=== PATIENT | female | born 1990 | race Asian ===

== ENCOUNTER 2022-04-05 13:14 | Inpatient (IN) ==
[2022-04-05] MEDS ORDERED: ACETAMINOPHEN 325 MG TAB PO PRN (13:18)
[2022-04-05] MEDS ORDERED: OXYTOCIN 30 UNITS/500 ML BAG IV PRN ×3 (13:47→20:49)
[2022-04-05] MEDS ORDERED: LIDOCAINE 1% LOCAL 20 ML VIAL INFIL PRN (13:47)
[2022-04-05 14:16] LABS: Hematocrit (blood only) 32.6 % (34.1-44.9); Hemoglobin 11.1 g/dl (12.0-16.0); Mean Corpuscular Volume 91.1 fL (80.0-100.0); Mean Platelet Volume 9.6 fL (9.4-12.3); Platelet Count 203 K/uL (130-400); RDW Coefficient of Variation 16.1 % (11.5-14.5); RDW Standard Deviation 54.6 fL (36.4-46.3); Red Blood Count 3.58 M/uL (3.93-5.22); White Blood Count 8.94 K/ul (4.8-10.8)
[2022-04-05] MEDS: LACTATED RINGER'S 1,000 ML IV PRN ×2 (14:59→16:13)
--- NOTE | 2022-04-05 15:17 | History & Physical Report ---
Date of Service April 05, 2022 Assessment & Plan (1) Encounter for supervision of normal in multigravida: Plan: patient is a 31-year-old currently at 40 weeks 3 days gestational age presents for leakage of fluid and early labor. 1. Fetus reactive NST/ category 1 tracing. 2. Labor: Early 3. GBS negative 4. Vitals wnl (2) Normal labor: (3) SROM (spontaneous rupture of membranes): Admission and Anticipated Discharge Date Admission Date: April 05, 2022 History of Present Illness Primary Care Provider: Grupo Larry DO [place] is a 31-year-old at 40 weeks 3 days gestational age. Patient presents with complaint of leakage of fluid and contractions. Denies any vaginal bleeding and reports good movement. Patient's has been uncomplicated today. Allergies Allergy/AdvReac Type Severity Reaction Status Date / Time No Known Allergies Allergy Verified 04/04/22 10:51 Home Medications Medication Instructions Recorded Confirmed Type vit 168-iron 27 mg-folic cap PO 09/05/21 04/04/22 History acid 800 mcg-omega3 235 mg capsule (One-A-Day -1) Patient History Medical History Varicella vaccination Surgical History S/P dilatation and curettage Family History Mother Hypertension Grandfather Myocardial infarction Father Glaucoma Denies family history of Ovarian cancer Prostate cancer Diabetes Breast cancer Lung cancer Colorectal cancer Social History Smoking Status: Never smoker Second Hand Exposure: No; Do You Dip or Chew Tobacco: No; Tobacco Cessation Education Requested by Patient: No Hx Alcohol Use: No Hx Substance Use: No Preferred Language: [place] Communication Ability: Effective Stylist Assistant Required: No Beliefs That Will Affect Care: None marital status: marital status details: Alexander Quinones (33) [phone] Current Living Situation: Spouse Current Living Situation Comment: - Di, Son- Ramiro 3y/0, Mother- Cherelle current occupational status: employed current occupation: [employer] Other Information That Helps Us Care for You: No Feels Safe at Home: Yes Safety Concerns: Feels Safe At This Time Childhood Exposure to Second-Hand Smoke: No Dental Care, Regularly: No Physical Activity Frequency: 1-2 Times per Week Seatbelt Use: always Sunscreen Use: Yes Assistive Devices: Glasses Physical Exam Genitourinary: Manual OB Exam: + cervical dilation 5 cm, + cervical effacement 80%, + station -1 and + amniotic fluid ( small ferns noted, pooling equivocal. Nitrazine positive) OB Exam Monitor Tracing: + external FHT monitor used, + category I and + normal FHT variability; no early decelerations present, no late decelerations present and no variable decelerations Results & Data ([facility]) Vital Signs (Past 12 Hours) Vital Signs Temp Pulse Resp BP 04/05/22 13:34 37.4 C 18 04/05/22 13:25 18 04/05/22 13:25 37.4 C 18 04/05/22 13:26 83 106/61 Coding Level of Care Code None Diagnoses Encounter for supervision of normal in multigravida Z34.80 Normal labor O80; Z37.9 SROM (spontaneous rupture of membranes)
[2022-04-05] MEDS ORDERED: ePHEDrine sulfate 50 MG/ML AMP ONE (15:54)
[2022-04-05] MEDS ORDERED: LIDOCAINE 2%/EPINEPHRINE 1:200,000 20 ML SDV ONE (15:55)
[2022-04-05] MEDS ORDERED: SODIUM CHLORIDE 0.9% INJ 10 ML VIAL ONE (15:55)
[2022-04-05] MEDS ORDERED: fentaNYL citrate 100 MCG/2 ML VIAL ONE (15:55)
[2022-04-05] MEDS ORDERED: BUPIVACAINE 0.25% 30 ML VIAL ONE (15:55)
[2022-04-05] MEDS ORDERED: fentaNYL 2MCG/ML ROPIVACAINE 1.25MG/ML 100 ML BAG EPI ONE (15:55)
[2022-04-05] MEDS ORDERED: NALOXONE HCL 0.4 MG/1 ML VIAL/CARP IV PRN (16:42)
[2022-04-05] MEDS ORDERED: ePHEDrine sulfate 50 MG/ML AMP IV PRN (16:42)
[2022-04-05] MEDS ORDERED: NALBUPHINE HCL INJ 10 MG/ML AMP IV PRN (16:42)
[2022-04-05] MEDS ORDERED: NALOXONE HCL 1 MG in SODIUM CHLORIDE 0.9% 1000ML 1,000 ML IV PRN (16:42)
[2022-04-05] MEDS ORDERED: fentaNYL 2MCG/ML ROPIVACAINE 1.25MG/ML 100 ML BAG EPI PRN (16:42)
[2022-04-05] MEDS ORDERED: PROMETHAZINE HCL 6.25 MG in SODIUM CHLORIDE 0.9% 50 ML IV PRN (16:42)
[2022-04-05] MEDS ORDERED: ONDANSETRON INJ 2 MG/ML 2 ML VIAL IV PRN (16:42)
[2022-04-05] MEDS ORDERED: diphenhydrAMINE 50 MG/ML VIAL IV PRN (16:42)
--- NOTE | 2022-04-05 16:42 | Anesthesiology Consultation ---
Date of Service April 05, 2022 Assessment & Plan Chart Review Chart Review: Patient NOT seen in Pre Admission Testing and Acceptable Risk for Labor Epidural Consults Requested none ASA ASA2 Proposed Anesthesia Anesthesia Type: Labor Epidural Risk / Benefits Reviewed With: PT / POA / Parent / Guardian, Accepts Plan and Informed Consent Obtained History Height/Weight Height: 5 ft 5 in Weight: 68.039 kg Allergies Allergy/AdvReac Type Severity Reaction Status Date / Time No Known Allergies Allergy Verified 04/04/22 10:51 Medications Home Medications Medication Instructions Recorded Confirmed Last Taken vit 168-iron 27 mg-folic cap PO 09/05/21 04/04/22 Unknown acid 800 mcg-omega3 235 mg capsule (One-A-Day -1) Active Medications Generic Name Dose Route Start Last Admin Trade Name Freq PRN Reason Stop Dose Admin Lactated Ringer's 1,000 mls @ 125 mls/hr 04/05/22 13:47 04/05/22 16:13 Lr IV 04/07/22 13:46 999 mls/hr .Q8H PRN Administration L&D Protocol Protocol Past Medical History Medical History Varicella vaccination Exercise / Class Metabolic Activity II 4-5 Yardwork/Stairs/Walk up hill Past Family History Family History Mother Hypertension Grandfather Myocardial infarction Father Glaucoma Denies family history of Ovarian cancer Prostate cancer Diabetes Breast cancer Lung cancer Colorectal cancer Past Surgical History Surgical History S/P dilatation and curettage Past Anesthesia History No Hx of Anesthesia Complications and No Family Hx of Anesthesia Complications History of PONV No Hx of PONV and No Hx of Motion Sickness Social History Smoking Status: Never smoker Do You Dip or Chew Tobacco: No Hx Alcohol Use: No Hx Substance Use: No Physical Exam Vital Signs Last Vital Signs Temp 36.8 C 04/05/22 16:07 Pulse 88 04/05/22 16:39 Resp 16 04/05/22 16:37 BP 104/63 04/05/22 16:39 Pulse Ox 98 04/05/22 16:38 ENMT Mouth: no dentition abnormality Thyromental Distance: > or= 3.5 Finger Breadths Mallampati Class: II Neck normal visual inspection Respiratory normal respiratory effort Auscultation: lungs clear to auscultation bilaterally Cardiovascular Rate/Rhythm: regular rate and regular rhythm Psychiatric Orientation: alert Testing Laboratory Results 04/05/22 14:05 Blood Type AB Positive 04/05/22 14:05 Antibody Screen NEGATIVE 04/05/22 14:05
[2022-04-05] MEDS ORDERED: BENZOCAINE 20% AER SPR 82.5 GM CAN EXT PRN (20:49)
[2022-04-05] MEDS ORDERED: HYDROCORTISONE ACETATE 25 MG SUPP PR PRN (20:49)
[2022-04-05] MEDS ORDERED: DIPHTHERIA/TETANUS/PERTUSSIS 0.5 ML SYR/VIAL IM ONE (20:49)
--- NOTE | 2022-04-05 20:51 | Delivery Summary ---
DATE OF SERVICE: 04/05/2022. PROCEDURE: Normal spontaneous vaginal delivery with second-degree perineal laceration repair. SURGEON: Shoaib Mclean MD. PREOPERATIVE DIAGNOSES: 1. Single intrauterine at 40 weeks 3 days gestational age. 2. Labor. POSTOPERATIVE DIAGNOSES: 1. Single intrauterine at 40 weeks 3 days gestational age labor. 2. Labor. 2. Status post procedure. ESTIMATED BLOOD LOSS: 300 mL DRAINS: None. FLUIDS: Continuous lactated Ringer. URINE OUTPUT: None. COMPLICATIONS: None. FINDINGS: Viable male infant with weight pending and Apgars of 8 and 9 at one and five minutes respe ctively. DESCRIPTION OF PROCEDURE: The patient progressed to 10 cm dilated, 100% effaced, positive 2 station, pushed over intact perineum with epidural anesthesia to deliver a viable male infant, weight and Apg ars as noted above. Head of the delivered in FAITH position, restituted right transverse. No nuchal cord was noted. Body and shoulders quickly followed. was noted to be vigorous soon a fter delivery and a 1 minute delayed cord clamping was initiated. Cord was then double clamped and c ut. remained on maternal abdomen. Cord blood was obtained. Attention was then turned to galvez of the placenta, which was delivered intact, 3-vessel cord, gentle cord traction. On inspecti on of the perineum, vagina, cervix, there was noted to be a second-degree perineal laceration, which was repaired with traditional crown stitch using 3-0 Vicryl. Needle, sponge, and instrument counts w ere correct at the completion of the case. Both mother and were stable in the immediate post- delivery period. Job ID: [id number]
[2022-04-05] MEDS: DOCUSATE SODIUM 100 MG CAP PO SCH (22:36)
--- NOTE | 2022-04-05 23:16 | Anesthesia Procedure Note ---
Date of Service April 05, 2022 Anesthesia Post Epidural Note Vital Signs Vital Signs: Temp Pulse Resp BP Pulse Ox O2 Del Method 36.8 C 78 18 104/69 99 04/05/22 19:10 04/05/22 22:23 04/05/22 22:23 04/05/22 22:23 04/05/22 20:23 04/05/22 19:00 Notes Mental Status: alert / awake / arousable and participated in evaluation Nausea / Vomiting: adequately controlled Pain: adequately controlled Airway Patency, RR, SpO2: stable & adequate BP & HR: stable & adequate Hydration State: stable & adequate Neuraxial Anesthesia: was administered and sensory block is resolving Anesthetic Complications: no major complications apparent and Pt Satisfied with anesthetic care Epidural: Removed without complications and With tip intact
[2022-04-06] MEDS: ACETAMINOPHEN 325 MG TAB PO PRN ×2 (00:50→07:30)
[2022-04-06] MEDS: IBUPROFEN 600 MG TAB PO PRN ×4 (03:37→19:45)
--- NOTE | 2022-04-06 07:05 | Obstetrical Progress Note ---
Date of Service <Yanira Hammond - Last Filed: 04/06/22 07:55> April 06, 2022 Assessment & Plan <Yanira HammondDO - Last Filed: 04/06/22 07:55> (1) Normal labor: continue OOB, ambulation, diet as tolerated <Shoaib Mclean MD - Last Filed: 04/06/22 08:26> (1) Normal labor: Subjective <Yanira HammondDO - Last Filed: 04/06/22 07:55> Ky is a 31 y/o female who is now PPD # 1 following spontaneous vaginal delivery at 40 3/7 weeks. Reports feeling well overall this morning. Mild abdominal cramping, pain well managed on analgesics. Voiding. Tolerating meals overnight and able to ambulate some. Some persistent lochia with some improvement this morning. Breast feeding. Review of Systems Denies fever, chills, sweats Denies shortness of breath, difficulty breathing, chest pain, palpitations, chest pressure. Denies breast pain. Denies dysuria. Denies headache or changes in vision. Physical Exam <Yanira HammondDO - Last Filed: 04/06/22 07:55> General: Alert, oriented. No acute distress. Cardiac: Regular rate and rhythm, no murmurs/rubs/gallops. Respiratory: Clear to auscultation bilaterally a/p, no wheezes/rales/rhonchi. No increased work of breathing. Symmetrical chest rise. No respiratory distress. Abdomen: Soft, nontender, nondistended. Uterus: Uterine fundus firm, palpable 1 cm below umbilicus. Lower Extremities: No lower extremity edema or swelling. No deep calf pain. Jerry's negative bilaterally. Results & Data ([facility]) <Yanira Hammond - Last Filed: 04/06/22 07:55> Vital Signs (Past 12 Hours) Vital Signs Temp Pulse Pulse Resp BP BP Pulse Ox 04/06/22 03:25 36.8 C 73 18 108/73 97 04/05/22 23:15 36.5 C 70 18 113/68 96 04/05/22 22:23 18 04/05/22 21:08 18 04/05/22 20:53 18 04/05/22 20:38 20 04/05/22 21:53 20 04/05/22 21:23 20 04/05/22 20:23 18 04/05/22 22:23 78 104/69 04/05/22 22:08 78 107/69 04/05/22 21:53 75 110/66 04/05/22 21:38 77 123/79 04/05/22 21:28 85 118/75 04/05/22 21:08 69 100/59 L 04/05/22 20:53 67 107/63 04/05/22 20:38 76 116/69 04/05/22 20:23 80 04/05/22 20:23 79 109/67 99 04/05/22 20:18 79 99 04/05/22 20:13 89 99 04/05/22 20:08 85 99 04/05/22 20:03 82 100 04/05/22 19:58 72 99 04/05/22 19:54 72 112/74 04/05/22 19:53 70 99 04/05/22 19:48 68 98 04/05/22 19:43 69 98 04/05/22 19:30 16 04/05/22 19:30 16 04/05/22 19:10 18 04/05/22 19:10 36.8 C 18 04/05/22 19:38 68 112/71 99 04/05/22 19:33 70 98 04/05/22 19:28 71 97 04/05/22 19:23 66 04/05/22 19:23 70 105/64 98 04/05/22 19:18 71 98 04/05/22 19:13 69 98 04/05/22 19:08 68 111/71 98 O2 Del Method 04/06/22 03:25 Room Air 04/05/22 23:15 Room Air 04/05/22 22:23 04/05/22 21:08 04/05/22 20:53 04/05/22 20:38 04/05/22 21:53 04/05/22 21:23 04/05/22 20:23 04/05/22 22:23 04/05/22 22:08 04/05/22 21:53 04/05/22 21:38 04/05/22 21:28 04/05/22 21:08 04/05/22 20:53 04/05/22 20:38 04/05/22 20:23 04/05/22 20:23 04/05/22 20:18 04/05/22 20:13 04/05/22 20:08 04/05/22 20:03 04/05/22 19:58 04/05/22 19:54 04/05/22 19:53 04/05/22 19:48 04/05/22 19:43 04/05/22 19:30 04/05/22 19:30 04/05/22 19:10 04/05/22 19:10 04/05/22 19:38 04/05/22 19:33 04/05/22 19:28 04/05/22 19:23 04/05/22 19:23 04/05/22 19:18 04/05/22 19:13 04/05/22 19:08 <Shoaib Mclean MD - Last Filed: 04/06/22 08:26> Co-Signing Physician Notes Patient seen with resident and agree with above findings and plan. Patient doing well and will plan for routine care today Resident Activity Tracking <Yanira Hammond DO - Last Filed: 04/06/22 07:55> Resident Involvement: Resident Care Provided Care Provided: OB Delivery (Post )
[2022-04-06] MEDS: PRENATAL VITAMIN 1 TAB PO SCH (08:48)
[2022-04-06] MEDS: FERROUS SULFATE 325 MG TAB PO SCH (08:48)
[2022-04-06] MEDS: DOCUSATE SODIUM 100 MG CAP PO SCH ×2 (08:48→19:45)
[2022-04-06] MEDS ORDERED: FLUARIX QUADRIVALENT 0.5 ML SYR IM ONE (09:00)
[2022-04-06] MEDS ORDERED: bisacodyL 5 MG TABEC PO SCH (20:00)
[2022-04-07] MEDS: IBUPROFEN 600 MG TAB PO PRN ×3 (00:03→13:07)
[2022-04-07] MEDS ORDERED: bisacodyL 10 MG SUPP PR PRN (06:00)
--- NOTE | 2022-04-07 07:32 | Obstetrical Progress Note ---
Date of Service April 07, 2022 Assessment & Plan (1) Encounter for care and examination after delivery: 31 yo PP2 from , doing well -Meeting all pp milestones -AB+/rubella immune/ -f/u 6 weeks for appt, stable for d/c home today Subjective Ambulation: ambulating normally Voiding: no voiding problems Passing Gas:: Yes Diet Tolerance:: regular diet Lochia:: Small Feeding Type:: breast feeding Pain well managed with medication Review of Systems Denies fevers, chills, n/v, ARIZA, CP, SOB Physical Exam Constitutional WD/WN, vitals as above no acute distress Respiratory normal respiratory effort, lungs clear to auscultation Cardiovascular RRR, no murmur, no edema Gastrointestinal (Abdomen) Percussion/Palpation: abdomen soft; abdomen nontender fundus firm at umbilicus and NT Musculoskeletal BLE symmetric, nonerythematous, nontender Results & Data ([facility]) Vital Signs (Past 12 Hours) Vital Signs Temp Pulse Resp BP Pulse Ox O2 Del Method 04/06/22 23:15 98.4 F 61 18 98/64 L 97 Room Air 04/06/22 19:42 98.2 F 79 16 99/65 L 96 Room Air
[2022-04-07] MEDS: PRENATAL VITAMIN 1 TAB PO SCH (09:23)
[2022-04-07] MEDS: DOCUSATE SODIUM 100 MG CAP PO SCH (09:23)
[2022-04-07] MEDS: FERROUS SULFATE 325 MG TAB PO SCH (09:23)
== END 2022-04-07 14:45 | disposition home or self-care (01) | DRG 807 ==
LOC: OPB 13:14 → 4S1 13:15 → 4E2 23:14
DX: Z3A.40 40 weeks gestation of pregnancy; O70.1 Second degree perineal laceration during delivery; Z37.0 Single live birth